=== PATIENT | male | born 1955 | race Two or more races ===

== ENCOUNTER 2019-10-11 19:05 | Emergency (ER) | payer MEDICARE, OTHER ==
[~2019-10-11] VITALS: Ht 172.7 cm; Wt 81.6 kg
[2019-10-11] MEDS ORDERED: ETOMIDATE (2MG/ML) 20ML VIAL IV ONE (19:08)
[2019-10-11] MEDS ORDERED: ATROPINE SULF 1 MG/10ml SYR IV ONE (19:09)
[2019-10-11] MEDS ORDERED: CALCIUM CHL(10%) 100MG/ML 10ML VIAL IV ONE (19:09)
[2019-10-11] MEDS ORDERED: EPINEPHrine HCL 1 MG/10 ML SYRG IV ONE ×2 (19:09)
[2019-10-11] MEDS ORDERED: CALCIUM CHLOR(10%) 100MG/ML 10ML SYRINGE IV ONE (19:09)
[2019-10-11] MEDS ORDERED: SUCCINYLCHOLINE CHLORIDE 20 MG/ML 10ML VIAL IV ONE (19:09)
[2019-10-11] MEDS ORDERED: SODIUM BICARBONATE 8.4% INJ 50ML SYRINGE IV ONE ×2 (19:09)
[2019-10-11] MEDS ORDERED: D5W 5% 100 ML MINI BAG IV ONE (19:09)
[2019-10-11] MEDS ORDERED: DEXTROSE (50%) 50ML SYRG IV ONE (19:09)
[2019-10-11] MEDS ORDERED: DOPamine 1600mCg/ml 400MG/250ml NSorD5 KIT/BAG IV ONE (19:09)
[2019-10-11] MEDS ORDERED: MIDAZOLAM DRIP 50 mg/50mL 50 ML IV ONE (19:10)
[2019-10-11 19:23] VITALS: BP 95/60
[2019-10-11] MEDS ORDERED: SODIUM BICARBONATE 8.4 % INJ 50ML VIAL IV ONE (19:24)
[2019-10-11] MEDS ORDERED: NOREPINEPHRINE 8 MG/250ML KIT 250 ML IV ONE (19:28)
[2019-10-11] MEDS ORDERED: LEVETIRACETAM 500 MG/5ML INJ IV ONE (19:28)
[2019-10-11] MEDS ORDERED: LEVETIRACETAM INJ 1,000 MG in D5W 5% 100 ML IV ONE (19:30)
[2019-10-11] MEDS ORDERED: SODIUM BICARBONATE 50ML VIAL 50 ML in SOD CHL 0.45% 1,000 ML IV ONE (19:30)
[2019-10-11] MEDS ORDERED: DexAMETHasone SOD PHOS 10MG/1ML VIAL INJ ONE (19:37)
[2019-10-11] MEDS ORDERED: PANTOPRAZOLE 40 MG/10 ML VIAL INJ IV ONE (19:46)
[2019-10-11] MEDS ORDERED: HETASTARCH 500 ML IV ONE (19:47)
[2019-10-11 19:55] LABS: Hematocrit 36.4 % (41.0-53.0); Hemoglobin 10.5 g/dL (13.5-17.5); Mean Corpuscular Hemoglobin 30.9 pg (28.0-32.0); Mean Corpuscular Hgb Conc. 28.9 g/dL (32.0-36.0)
[2019-10-11 19:56] LABS: Mean Corpuscular Volume 107.1 fL (80.0-100.0); Platelet Count (auto) 47 10^3/uL (140-450); White Blood Cell 22.4 10^3/uL (4.4-10.8)
[2019-10-11 19:59] LABS: Albumin 2.3 g/dL (3.4-5.0); Calcium 9.1 mg/dL (8.5-10.1); Magnesium 3.4 mg/dL (1.6-2.6)
[2019-10-11 20:05] LABS: Basophils % (manual) 0 (0.0-2.0); Blast Cells 0; Eosinophils % (manual) 0 (0-7); Metamyelocytes % 0; Myelocytes % 0; Promyelocytes % 0; Reactive Lymphocytes 0
[2019-10-11] MEDS ORDERED: cefTRIAXone 1GM/50ML D5W 50 ML IV ONE (20:15)
[2019-10-11] MEDS ORDERED: VANCOMYCIN 1GM/250ML 250 ML IV ONE (20:15)
[2019-10-11 20:25] LABS: BUN/Creatinine Ratio 13.4; Bilirubin, Total 4.2 mg/dL (0.2-1.0); Total Protein 4.6 g/dL (6.4-8.2)
[2019-10-11 20:36] LABS: INR > 8.0 (0.9-1.15)
[2019-10-11 21:00] LABS: Urine Bacteria NONE SEEN /hpf (None Seen); Urine Blood 1+ /uL (Negative); Urine Hyaline Cast MOD /lpf (0 - 2); Urine Mucus FEW (None Seen); Urine Specific Gravity 1.011 (1.001-1.035); Urine Sperm PRESENT /hpf (None Seen); Urine WBC 41 /hpf (0 - 3); Urine WBC Clumps PRESENT /hpf (None Seen)
[2019-10-11 21:11] LABS: Alcohol, Urine < 3.0 mg/dL (0-5); Amphetamine Screen, Urine POSITIVE (NEGATIVE); Barbiturate Scree,Urine NEGATIVE (NEGATIVE); Benzodiazephine Screen, Urine NEGATIVE (NEGATIVE); Cannabinoid Screen, Urine NEGATIVE (NEGATIVE); Cocaine Screen, Urine NEGATIVE (NEGATIVE); Opiate Scree,Urine NEGATIVE (NEGATIVE); Phencyclidine Screen, Urine NEGATIVE (NEGATIVE)
[2019-10-11 21:32] LABS: Band Neutrophils % (manual) 8; Lymphocytes % (manual) 17 (10.0-50.0); Monocytes % (manual) 8 (0-12)
== END 2019-10-11 21:04 | disposition expired ==
LOC: EDBD 19:05 → ER 19:08
DX: I46.9 Cardiac arrest, cause unspecified (principal); R06.89 Other abnormalities of breathing; R41.0 Disorientation, unspecified
CPT/HCPCS: 31500; 36415; 36600; 51702; 70450; 71045; 71250; 72125; 74176; 80053; 80307; 80320; 81001; 82805; 83605; 83735; 84484; 85007; 85027; 85379; 85610; 85730; 87040; 87070; 87077; 87186; 87205; 92950; 93005; 96365; 96375; 99285; C9113; J0171; J0330; J1100; J1265; J1953; J2250; J7042; J7060; 94002; 99152